=== PATIENT | male | born 1965 | race Caucasian/White ===

== ENCOUNTER 2020-10-31 14:34 | Inpatient (IN) | payer OTHER ==
[~2020-10-31] VITALS: Ht 177.8 cm; Wt 95.3 kg
[~2020-10-31 14:34] MED LIST: ATORVASTATIN CA20 MG PO; BRILINTA 90 MG90 MG PO; IMDUR ER TAB 3030 MG PO; LIPITOR TAB 2020 MG PO; PROTONIX40 MG PO; SURFAK 240 MG240 MG PO; TYLENOL 325MG325 MG PO
[2020-10-31 15:35] LABS: HEMOGLOBIN 15.5 gm/dl (14.0-17.5); WHITE BLOOD COUNT 9.8 K/UL (4.5-11.0)
[2020-10-31 15:55] LABS: BUN/CREATININE RATIO 25 (0-10)
[2020-11-01 02:17] LABS: HEMOGLOBIN 14.9 gm/dl (14.0-17.5); RED BLOOD COUNT 4.81 M/UL (4.20-5.50); WHITE BLOOD COUNT 8.7 K/UL (4.5-11.0)
[2020-11-01 02:39] LABS: BUN/CREATININE RATIO 21 (0-10)
[2020-11-01] MEDS ORDERED: CLOPIDOGREL75 MG PO (09:35)
[2020-11-01] MEDS ORDERED: METFORMIN HCL1000 MG PO (09:37)
[2020-11-01] MEDS ORDERED: THERAGRAN M TAB1 EA PO (09:49)
[2020-11-01] MEDS ORDERED: VITAMIN D210 MCG PO (09:49)
[2020-11-01] MEDS ORDERED: ALPHA LIPOIC AC50 MG PO (09:51)
[2020-11-01] MEDS ORDERED: NITROSTAT0.4 MG PO (09:54)
[2020-11-01] MEDS ORDERED: SKIN TREATMENT400 GM TOP (09:55)
[2020-11-01] MEDS ORDERED: ISORDIL TAB 3030 MG PO (09:56)
[2020-11-01] MEDS ORDERED: ATORVASTATIN CA80 MG PO (09:57)
[2020-11-01] MEDS ORDERED: COREG25 MG PO (18:48)
[2020-11-01] MEDS ORDERED: COZAAR100 MG PO (18:49)
[2020-11-01] MEDS ORDERED: JANUVIA100 MG PO (18:49)
[2020-11-01] MEDS ORDERED: ASPIRIN EC325 MG PO (18:49)
[2020-11-02 07:54] LABS: HEMOGLOBIN 14.2 gm/dl (14.0-17.5); RED BLOOD COUNT 4.65 M/UL (4.20-5.50); WHITE BLOOD COUNT 7.5 K/UL (4.5-11.0)
[2020-11-02 08:27] LABS: BUN/CREATININE RATIO 17 (0-10)
--- NOTE | 2020-11-02 14:14 | NUR ---
NO CHANGE FROM PREVIOUS ASSESSMENT
== END 2020-11-02 19:00 | disposition short-term general hospital (02) | DRG 281 ==
LOC: ER1 14:34 → CDU 17:46 → PROG CARE 11-01 13:57
PROVIDERS: Physician Assistant; ADMIT Internal Medicine
PROC: 8E0ZXY6 Isolation (ICD-10-PCS; 2020-10-31)
PROC: B24BZZ4 Ultrasonography of Heart with Aorta, Transesophageal (ICD-10-PCS; principal; 2020-11-01)
PROC: 4A023N7 Measurement of Cardiac Sampling and Pressure, Left Heart, Percutaneous Approach (ICD-10-PCS; 2020-11-02)
PROC: B2111ZZ Fluoroscopy of Multiple Coronary Arteries using Low Osmolar Contrast (ICD-10-PCS; 2020-11-02)
DX: I21.4 Non-ST elevation (NSTEMI) myocardial infarction (principal); T82.855A Stenosis of coronary artery stent, initial encounter; E11.40 Type 2 diabetes mellitus with diabetic neuropathy, unspecified; I10 Essential (primary) hypertension; I44.0 Atrioventricular block, first degree; Z20.822 Contact with and (suspected) exposure to COVID-19; I25.5 Ischemic cardiomyopathy; E78.5 Hyperlipidemia, unspecified; Y83.2 Surgical operation with anastomosis, bypass or graft as the cause of abnormal reaction of the patient, or of later complication, without mention of misadventure at the time of the procedure; Z95.5 Presence of coronary angioplasty implant and graft; Z79.4 Long term (current) use of insulin; I25.2 Old myocardial infarction; Z90.49 Acquired absence of other specified parts of digestive tract; Z88.8 Allergy status to other drugs, medicaments and biological substances; Z83.3 Family history of diabetes mellitus; Z82.49 Family history of ischemic heart disease and other diseases of the circulatory system; Z79.01 Long term (current) use of anticoagulants; Z79.82 Long term (current) use of aspirin
CPT/HCPCS: ECHO; 36415; 71045; 80048; 80053; 80061; 82550; 82553; 82962; 83036; 83735; 83874; 84100; 84484; 85025; 85027; 85730; 93005; 93306; 99152; 99285; C1769; G0378; J1644; J1650; J2250; J3010; J7030; Q9967; U0002

== ENCOUNTER → 2020-12-02 | Outpatient (CLI) | payer OTHER ==
[~2020-12-02] MED LIST changes: +ALPHA LIPOIC AC50 MG PO; +ASPIRIN EC325 MG PO; +ATORVASTATIN CA80 MG PO; +CLOPIDOGREL75 MG PO; +COREG25 MG PO; +COZAAR100 MG PO; +ISORDIL TAB 3030 MG PO; +JANUVIA100 MG PO; +METFORMIN HCL1000 MG PO; +NITROSTAT0.4 MG PO; +SKIN TREATMENT400 GM TOP; +THERAGRAN M TAB1 EA PO; +VITAMIN D210 MCG PO
== END ==
LOC: EXRD 13:38
DX: Z00.00 Encounter for general adult medical examination without abnormal findings (principal)
CPT/HCPCS: 71046

== ENCOUNTER → 2020-12-09 | Outpatient (CLI) | payer OTHER | LOC: HEART 5 13:48 | DX: R00.2 Palpitations (principal) ==